=== PATIENT | female | born 1960 | race Caucasian/White ===

== ENCOUNTER 2023-09-01 16:40 | Inpatient (IN) | payer MEDICARE, MEDICAID ==
[2023-09-01] MEDS ORDERED: Metoclopramide 10 MG/2 ML SDV IV PRN (17:17)
[2023-09-01] MEDS ORDERED: Sodium Chloride 0.9% 10 ML Syringe FLUSH PRN (17:17)
[2023-09-01] MEDS ORDERED: Prochlorperazine 5 MG Tab PO PRN (17:17)
[2023-09-01] MEDS ORDERED: Ondansetron 4 MG/2 ML SDV IVPUSH PRN (17:17)
[2023-09-01] MEDS ORDERED: LORazepam 1 MG Tab PO PRN (17:17)
[2023-09-01 17:57] LABS: PROTHROMBIN TIME 10.7 SEC (9.0-12.0)
[2023-09-01 17:59] LABS: ANION GAP 14.6 mEq/L (7-13); BLOOD UREA NITROGEN,BUN 4 mg/dL (7-18); CALCIUM 8.8 mg/dL (8.5-10.1); CARBON DIOXIDE,CO2 25 mmol/L (21-32); CHLORIDE,CL 83 mmol/L (98-107); CREATININE 0.64 mg/dL (0.55-1.02); GLUCOSE RANDOM 98 mg/dL (70-99); POTASSIUM,K 4.6 mmol/L (3.5-5.1)
[2023-09-01 18:00] LABS: ESTIMATED GFR 98 mL/min (>=60)
[2023-09-01 18:02] LABS: SODIUM,NA 118 mmol/L (136-145)
[2023-09-01 18:03] LABS: ALBUMIN 3.5 g/dL (3.4-5.0); BILIRUBIN DIRECT 0.3 mg/dL (0.0-0.2); BILIRUBIN INDIRECT 0.3; BILIRUBIN TOTAL 0.6 mg/dL (0.2-1.0); MAGNESIUM 1.6 mg/dL (1.8-2.4); PHOSPHORUS 3.5 mg/dL (2.6-4.7)
[2023-09-01] MEDS: Thiamine 100 MG Tab PO SCH (19:29)
[2023-09-01] MEDS: Thiamine 250 MG in Sodium Chloride 0.9% 100 ML IV SCH (19:31)
[2023-09-01] MEDS: Thiamine 500 MG in Sodium Chloride 0.9% 250 ML IV SCH (19:33)
[2023-09-01] MEDS: chlordiazePOXIDE 25 MG Cap PO SCH (19:34)
[2023-09-01] MEDS: Folic Acid 1 MG Tab PO SCH (19:38)
[2023-09-01] MEDS: Multivitamin Tab PO SCH (19:38)
[2023-09-01] MEDS: Sodium Chloride 0.9% 1,000 ML IV SCH (19:39)
[2023-09-01] MEDS: Sodium Chloride 0.9% 10 ML Syringe FLUSH SCH (20:00)
[2023-09-01 21:20] LABS: ANION GAP 16.2 mEq/L (7-13); CALCIUM 8.3 mg/dL (8.5-10.1); CREATININE 0.52 mg/dL (0.55-1.02); EST CRCL DRUG DOSING (CG) 88.82 mL/min; POTASSIUM,K 4.2 mmol/L (3.5-5.1)
[2023-09-02 07:55] LABS: ANION GAP 11.4 mEq/L (7-13); CALCIUM 8.3 mg/dL (8.5-10.1); CREATININE 0.56 mg/dL (0.55-1.02); EST CRCL DRUG DOSING (CG) 82.47 mL/min; POTASSIUM,K 4.4 mmol/L (3.5-5.1)
[2023-09-02] MEDS: Thiamine 250 MG in Sodium Chloride 0.9% 100 ML IV SCH (08:33)
[2023-09-02] MEDS ORDERED: Sodium Chloride 0.9% 1,000 ML IV SCH (09:45)
[2023-09-02 10:38] LABS: ANION GAP 11.6 mEq/L (7-13); CALCIUM 8.3 mg/dL (8.5-10.1); CREATININE 0.79 mg/dL (0.55-1.02); EST CRCL DRUG DOSING (CG) 58.46 mL/min; POTASSIUM,K 3.6 mmol/L (3.5-5.1)
[2023-09-02] MEDS: Magnesium Sulfate/Water 4 GM in Premix Bag 1 BAG IV ONE (11:13)
[2023-09-02] MEDS: Metoprolol Tartrate 25 MG Tab PO SCH (15:39)
[2023-09-02] MEDS: Citalopram 20 MG Tab PO SCH (15:39)
[2023-09-03 07:14] LABS: ANION GAP 8.5 mEq/L (7-13); CALCIUM 8.6 mg/dL (8.5-10.1); CREATININE 0.63 mg/dL (0.55-1.02); EST CRCL DRUG DOSING (CG) 73.31 mL/min; POTASSIUM,K 4.5 mmol/L (3.5-5.1)
[2023-09-03] MEDS: Thiamine 100 MG in Sodium Chloride 0.9% 100 ML IV SCH (08:55)
[2023-09-03] MEDS ORDERED: Thiamine 200 MG/2 ML MDV IV SCH (09:00)
[2023-09-03] MEDS: chlordiazePOXIDE 25 MG Cap PO SCH (20:00)
[2023-09-04 06:53] LABS: ANION GAP 7.1 mEq/L (7-13); CALCIUM 8.4 mg/dL (8.5-10.1); CREATININE 0.53 mg/dL (0.55-1.02); EST CRCL DRUG DOSING (CG) 87.14 mL/min; POTASSIUM,K 4.1 mmol/L (3.5-5.1)
[2023-09-05] MEDS: Thiamine 100 MG Tab PO ONE (08:53)
[2023-09-05 09:14] LABS: ANION GAP 12.7 mEq/L (7-13); CALCIUM 8.7 mg/dL (8.5-10.1); CREATININE 0.68 mg/dL (0.55-1.02); EST CRCL DRUG DOSING (CG) 67.92 mL/min; POTASSIUM,K 3.7 mmol/L (3.5-5.1)
[2023-09-05] MEDS: Magnesium Oxide 400 MG Tab PO ONE (10:12)
== END 2023-09-05 14:48 | disposition home or self-care (01) | DRG 897 ==
LOC: DL.MS 16:40 → UNDOADMIN 16:40 → DL.MS 17:17
PROVIDERS: ADMIT Internal Medicine; ATTEND Internal Medicine
DX: F10.139 Alcohol abuse with withdrawal, unspecified (principal); E87.1 Hypo-osmolality and hyponatremia; I10 Essential (primary) hypertension; R56.9 Unspecified convulsions; F10.129 Alcohol abuse with intoxication, unspecified; F32.9 Major depressive disorder, single episode, unspecified; R26.9 Unspecified abnormalities of gait and mobility
CPT/HCPCS: 36415; 80048; 80076; 82140; 83735; 84100; 85610; 97165-GO; 99222; 99232; A9270-GY; J3411; J3475; J3490; J7030; J7050